=== PATIENT | female | born 1995 | race Caucasian/White ===

== ENCOUNTER 2022-04-18 16:04 | Emergency (ER) | payer OTHER ==
--- OUTSIDE RECORDS SUMMARY | 2022-04-18 16:08 | XMS REPORT | Continuity of Care Document ---
:1995 Author Organization [facility] t Address [address] [place] [address] Care Team Providers Name Role Phone CAMILA BENAVIDES Primary Care Physician Unavailable CAMILA BENAVIDES Attending Clinician Unavailable Camila Benavides MD Attending Clinician Payers Payer Name Policy Type Policy Number Effective Date Expiration Date S sahli [facility] [id number] 2016 00:00:00 Problems Condition Condition Condition Status Onset Resolution Last Treating Co mments Source Name Details Category Date Date Treatment Clinician Date ADHD ADHD Disease Active Univers (attention (attention 4-27 it y of deficit deficit 00:00: [place] hyperactiv hyperactiv 00 Me dical ity ity Branch disorder), disorder), inattentiv inattentiv e type e type Anxiety, Anxiety, Disease Active Unive rs generalize generalize 4-27 it y of d d 00:00: [place] [address] Medical Branch Moderately Moderately Disease Active U nivers severe severe 4-27 ity of depression [place] Primary Primary Disease Active Univers insomnia insomnia 4-27 ity of 00:00: [place] [facility] History of History of Disease Active U nivers abnormal abnormal 2-23 ity of cervical cervical 00:00: [place] Pap smear Pap smear 00 [facility] gina Branch Pain Pain Disease Active Univers pelvic pelvic 2-23 ity of 00:00: [place] [address] Medical Branch Flu Flu Disease Active Univers vaccine vaccine 2-23 ity of need need 00:00: [place] 00 Medical Branch Class 3 Class 3 Disease Active Univers severe severe 2-23 ity of obesity obesity 00:00: [place] due to due to 00 Medical excess excess Branch calories calories with body with body mass index mass index (BMI) of (BMI) of 40.0 to 40.0 to 44.9 in 44.9 in adult, adult, unspecifie unspecifie d whether d whether serious serious comorbidit comorbidit y present y present BMI BMI Disease Active Univers 40.0-44.9, 40.0-44.9, 2-23 it y of adult adult 00:00: [place] 00 Medical Branch Papanicola Papanicola Disease Active 2019-08 Overview : Univers ou smear ou smear 0-12 Formattin ity of of cervix of cervix 00:00: [place] of this [place] with low with low 00 note Medica l grade grade might be Branch squamous squamous different intraepith intraepith from the elial elial original. lesion lesion See (LGSIL) (LGSIL) results, will need repeat pap in 12 months Encounter Encounter Disease Active Uni vers for for 6-08 ity of contracept contracept 00:[place] sid sid 00 Medical management management Br anch , , unspecifie unspecifie d d contracept contracept sid sid encounter encounter type type Encounter Encounter Disease Active Uni vers to to 6-08 ity of establish establish 00:00: Luis Fernando s care with care with 00 [facility] gina new doctor new doctor Br anch Obesity Obesity Disease Active Univers (BMI (BMI 6-08 ity of 30-39.9) 30-39.9) 00:00: [place] 00 Medical Branch Well woman Well woman Disease Active U nivers exam exam 1-29 ity of without without 00:00: [place] gynecologi gynecologi 00 Me dical gina exam gina exam Branch Risky Risky Disease Active Univers sexual sexual 2-15 ity of behavior behavior 00:00: [place] [facility] Allergies, Adverse Reactions, Alerts Allergy Allergy Status Severity Reaction(s) Onset Inactive Treating Comm ents Source Name Type Date Date Clinician LATEX DRUG Active Rash Univers INGREDI 7-30 ity of 00:00: [place] [facility] Latex Propensi Active Rash 2015-0 Univers ty to 7-30 ity of adverse 00:00: [place] reaction 00 Medical s Branch Social History Social Habit Start Date Stop Date Quantity Comments Source Alcohol intake 2021-12-27 2021-12-27 Current drinker Unive rsity of 00:00:00 00:00:00 of alcohol [place] [facility] (finding) Branch Exposure to 2021-12-13 2021-12-[address] [facility]-CoV-2 00:00:00 22:10:00 [place] [facility] (event) Branch Alcohol Comment 2021-10-22 2021-10-22 social Universit y of 00:00:00 00:00:00 [place] [facility] History SDOH 2020-06-03 2020-06-03 2 University o f Alcohol Frequency 00:00:00 00:00:00 [place] M edical Branch History SDDE 2020-06-03 2020-06-03 99 University o f Alcohol Std 00:00:00 00:00:00 [place] [facility] Drinks Branch History SDDE 2020-06-03 2020-06-03 99 University o f Alcohol Binge 00:00:00 00:00:00 [place] [facility] al [facility] Tobacco use and 2013-11-07 2013-11-07 Never used Universit y of exposure 00:00:00 00:00:00 [facility] Sex [birth year] At [birth year] Universit y of 00:00:00 00:00:00 [facility] Smoking Status Start Date Stop Date Source Never smoker [facility] Medications Ordered Filled Start Stop Current Ordering Indication Dosage Frequency Signature Comments Components Source Medication Medication Date Date Medication? Clinician (SIG) Name Name traZODone Yes [id number] 50mg Take 1 Uni vers 50 mg 4-27 tablet by ity of tablet 00:00: mouth at [place] 00 bedtime. Medical Branch buPROPion Yes [id number] 100mg Take 1 Univers SR 100 mg 4-27 tablet by ity o f SR tablet 00:00: mouth 2 00 (two) Medical times Branch daily. clotrimazol Yes [id number] Apply to [facility] [place] [facility] e-betametha 4-04 area(s) 2 ity of sone 00:00: (two) [place] (LOTRISONE) 00 times Medical cream daily. Branch omeprazole Yes [id number] 20mg Take 1 Univers 20 mg - capsule by ity of capsule 00:00: mouth [place] 00 daily. Medical Branch ketoconazol Yes [id number] Apply to Univers e 2 % 12-01 area(s) ity of shampoo 00:00: once [place] 00 as needed Medical for Branch Itching (tinea vesicolor) . Lather shampoo, then rinse after 5 mins for 2 weeks fluconazole 2021- No TAKE 1 Uni vers 150 mg 10-31 TABLET BY ity of tablet 00:00: 00:00 MOUTH 1 [place] 00 :00 TIME NOW Medical FOR 1 DOSE Branch amoxicillin 2021- No [id number] 500mg Take 1 Univers 500 mg 12-17 capsule by ity of capsule 00:00: 00:00 mouth 3 [place] 00 :00 (three) Medical times Branch daily. ibuprofen 2021- No [id number] 800mg Take 1 Univers 800 mg 12-17 tablet by ity of tablet 00:00: 00:00 mouth [place] 00 :00 every 8 Medical (eight) Branch hours. ondansetron 2021- No [id number] 4mg Take 1 Univers 4 mg 12-17 tablet by ity of disintegrat 00:00: 00:00 [place] tablet 00 :00 every 4 Medica l (four) Branch hours as needed for Nausea and Vomiting (N/V). ibuprofen 2021- No [id number] 600mg Take 1 Univers 600 mg 08-30 tablet by ity of tablet 00:00: 00:00 mouth [place] 00 :00 every 6 Medical (six) Branch hours as needed for Pain (scale 4-6). ibuprofen 2019-08- No [id number] 600mg Take 1 Univers 600 mg 09-30 tablet by ity of tablet 00:00: 00:00 mouth [place] 00 :00 every 6 Medical (six) Branch hours as needed for Pain (scale 4-6). traMADoL 50 2019-08- No [id number] 50mg Take 1 Uni vers mg tablet 09-30 tablet by ity of 00:00: 00:00 mouth [place] 00 :00 every 6 Medical (six) Branch hours as needed for Pain (scale 4-6). Indication s: acute pain medroxyPROG 2016-0 Yes [id number] 150mg U ade ESTERone - ity of (DEPO-PROVE 20:15: [place] RA) 00 Medical injection Branch 150 mg Immunizations Ordered Immunization Filled Immunization Date Status Commen ts Source Name Name HPV9 2021-10-22 Completed University of 00:00:00 [facility] Influenza Virus 2021-10-22 Completed Universit y of Vaccine Quad .5 mL IM 00:00:00 [place] [facility] 6+ MO Branch SARS-COV-2 COVID-19 2021-08-09 Completed Unive rsity of PFIZER VACCINE 00:00:00 [place] [facility] gina Branch SARS-COV-2 COVID-19 2021-01-22 Completed Unive rsity of MODERNA VACCINE 00:00:00 [facility] ical Branch SARS-COV-2 COVID-19 2020-12-17 Completed Unive rsity of MODERNA VACCINE 00:00:00 [facility] ical Branch Influenza Virus 2020-06-03 Completed Universit y of Vaccine Quad .5 mL IM 00:00:00 [place] [facility] 6+ MO Branch Meningococcal 2015-03-28 Completed University of Polysaccharide 00:00:00 [facility] gina (groups A, C, Y and Branc h W-135) conjugate vaccine (MCV4P) HPV 2011-03-17 Completed University of 00:00:00 [facility] HPV 2010-12-23 Completed University of 00:00:00 [facility] DTAP 2008-12-06 Completed University of 00:00:00 [facility] Meningococcal Vaccine 2008-12-06 Completed Uni versity of 00:00:00 [facility] Varicella 2008-12-06 Completed University of (varivax)(chicken 00:00:00 [facility] edical pox) Branch HEPATITIS A 2006-03-22 Completed University of 00:00:00 [facility] Hep B, Adol or Pedi 2006-03-22 Completed Unive rsity of Dosage 00:00:00 [facility] DTAP 2006-01-13 Completed University of 00:00:00 [facility] Hep B, Adol or Pedi 2006-01-13 Completed Unive rsity of Dosage 00:00:00 [facility] DTAP 2005-07-13 Completed University of 00:00:00 [facility] HEPATITIS A 2005-07-13 Completed University of 00:00:00 [facility] Hep B, Adol or Pedi 2005-07-13 Completed Unive rsity of Dosage 00:00:00 [facility] DTAP 2001-05-05 Completed University of 00:00:00 [facility] MMR 2001-05-05 Completed University of 00:00:00 [facility] Polio (IPV/OPV) 2001-05-05 Completed Universit y of 00:00:00 [facility] Pneumococcal 7 2000-12-24 Completed University of Conjugate, PCV7 00:00:00 [place] Med ical (Prevnar7) Branch DTAP 1998-08-06 Completed University of 00:00:00 [facility] HIB 4 Dose Schedule 1998-05-02 Completed Unive rsity of 00:00:00 [facility] MMR 1998-05-02 Completed University of 00:00:00 [facility] Polio (IPV/OPV) 1998-05-02 Completed Universit y of 00:00:00 [facility] Varicella 1998-05-02 Completed University of (varivax)(chicken 00:00:00 [facility] edical pox) Branch Vital Signs Vital Name Observation Time Observation Value Comments Source Systolic blood 2021-12-24 20:05:00 115 mm[Hg] Univer sity of pressure [facility] Diastolic blood 2021-12-24 20:05:00 75 mm[Hg] Unive rsity of pressure [facility] Heart rate 2021-12-24 20:05:00 80 /min [facility] Body temperature 2021-12-24 20:05:00 37.22 Ximena [facility] Respiratory rate 2021-12-24 20:05:00 18 /min [facility] Body height 2021-12-24 20:05:00 149.9 cm [facility] Body weight 2021-12-24 20:05:00 93.441 kg [facility] BMI 2021-12-24 20:05:00 41.61 kg/m2 [facility] Oxygen saturation in 2021-12-24 20:05:00 97 /min [facility] Arterial blood by [facility] Pulse oximetry Branch Procedures This patient has no known procedures. Encounters Start End Encounter Admission Attending Care Care Encounter Source Date/Time Date/Time Type Type Clinicians Facility Department ID 2022-04-30 2022-04-30 [facility] [id number] Univers 13:00:00 13:00:00 CAMILA [id number] [facility] 2022-01-07 2022-01-07 [facility] [id number] Univers 08:20:00 08:20:00 CAMILA [facility] 2021-12-24 2021-12-24 [facility] [id number] Univers 14:00:00 15:44:33 Visit Camila HERNANDEZ [id number] i [place] [id number] Luis Fernando KRAUS [id number] Or dical NAL 044 Branch BUILDING Results This patient has no known results.
[2022-04-18 16:34] LABS: Urine Blood Negative (Negative); Urine Glucose Negative (Negative); Urine Protein Negative (Negative); Urine Specific Gravity 1.025 (1.005-1.030)
[2022-04-18 18:06] LABS: Urine Specific Gravity/Preg 1.025 (1.005-1.030)
[2022-04-18 18:21] LABS: Absolute Lymphocytes (CBC) 1.4 K/uL (0.7-4.9); Hematocrit 37.8 % (36.0-45.0); Lymphocytes % 16.4 % (15.3-44.8); MCV 80.3 fL (80-100); MPV 7.9 fL (7.6-11.3)
[2022-04-18] MEDS ORDERED: ONDANSETRON 4 MG/2 ML VIAL ONE (18:32)
[2022-04-18] MEDS ORDERED: DICYCLOMINE HCL 20 MG/2 ML AMP IM ONE (18:32)
[2022-04-18 18:39] LABS: Albumin 3.5 g/dL (3.4-5.0); Bilirubin Total 0.3 mg/dL (0.2-1.0); Protein, Total 7.4 g/dL (6.4-8.2)
[2022-04-18 18:47] LABS: Urine Bacteria 20-50 /HPF (<20); Urine Mucus 1+ /HPF (None Seen); Urine RBC <5 /HPF (None Seen)
--- NOTE | 2022-04-18 19:19 | RAD REPORT ---
EXAM DESCRIPTION: CT - Abdomen Pelvis W Contrast - 04/18/2022 6:55 pm CLINICAL HISTORY: abdominal pain COMPARISON: No comparisons TECHNIQUE: Biphasic, helical CT imaging of the abdomen and pelvis was performed following 100 ml non -ionic IV contrast. No oral contrast administered. All CT scans are performed using dose optimization technique as appropriate and may include automated exposure control or mA/KV adjustment according to patient size. FINDINGS: No suspicious findings in the lung bases. The liver, spleen, and pancreas show no suspicious findings. Gallbladder and biliary tree are also wi thout suspicious finding. Symmetric renal function is seen with no hydronephrosis or suspicious renal mass. No pyelonephritis o r acute parenchymal process. No bladder abnormalities. No adrenal abnormalities. No dilated bowel loops or bowel wall thickening. No appendicitis findings. A few small nonspecific me senteric lymph nodes are present. Uterus and ovaries show no suspicious findings. No free air or pneu matosis. Physiologic quantity of free fluid is present in the cul de sac. No hernia, mass or bulky l ymphadenopathy. No suspicious bony findings. IMPRESSION: Contrast enhanced CT abdomen and pelvis showing no acute or emergent finding.
--- NOTE | 2022-04-18 19:32 | EDPHYS ---
Physician Documentation [facility] Name: Evie Estevez Age: 27 yrs Sex: Female : 1995 Arrival Date: 04/18/2022 Time: 16:07 Bed 10 Private MD: ED Physician Vero Mcelroy HPI: 04/18 17:35 This 27 yrs old Female presents to ER via Ambulatory with complaints of Dizziness, cp Nausea/Vomiting, Abdominal Cramping. 17:35 The patient presents with abdominal pain in the epigastric area, in the lower abdomen. cp Onset: The symptoms/episode began/occurred today. The symptoms radiate to low back. 17:35 Associated signs and symptoms: Pertinent positives: nausea and vomiting, dizziness. cp 17:35 Severity of pain: in the emergency department the pain has improved mildly. cp [employer]: 16:26 LMP 04/17/2022 kb3 Historical: - Allergies: 16:26 Latex, Natural Rubber; kb3 - Home Meds: 16:26 None [Active]; kb3 - PMHx: 16:26 None; kb3 - PSHx: 16:26 None; kb3 - Immunization history:: Adult Immunizations up to date, Client reports receiving the 2nd dose of the Covid vaccine, Last tetanus immunization: up to date. - Social history:: Smoking status: Patient denies any tobacco usage or history of. Patient uses alcohol, only on a social basis. Patient/guardian denies using street drugs. ROS: 17:40 Constitutional: Negative for body aches, chills, fever, poor PO intake. cp 17:40 Cardiovascular: Negative for chest pain, palpitations. cp 17:40 Respiratory: Negative for cough, shortness of breath, wheezing. 17:40 Abdomen/GI: Positive for abdominal pain, nausea and vomiting, abdominal cramps, Negative for diarrhea, constipation. 17:40 Back: Negative for injury or acute deformity, decreased range of motion. 17:40 : Positive for vaginal bleeding. 17:40 Neuro: Positive for dizziness, Negative for altered mental status, numbness, tingling, weakness. 17:40 All other systems are negative. Exam: 17:45 Constitutional: The patient appears in no acute distress, alert, awake, cp non-diaphoretic, non-toxic, well developed, well nourished. 17:45 Head/Face: Normocephalic, atraumatic. cp 17:45 Eyes: Periorbital structures: appear normal, Conjunctiva: normal, no exudate, no injection, Sclera: no appreciated abnormality, Lids and lashes: appear normal, bilaterally. 17:45 ENT: External ear(s): are unremarkable, Nose: is normal, Mouth: Lips: moist, Oral mucosa: pink and intact, moist, Posterior pharynx: Airway: no evidence of obstruction, patent. 17:45 Chest/axilla: Inspection: normal. 17:45 Cardiovascular: Rate: normal, Rhythm: regular. 17:45 Respiratory: the patient does not display signs of respiratory distress, Respirations: normal, no use of accessory muscles, no retractions, labored breathing, is not present, Breath sounds: are clear throughout, no decreased breath sounds, no stridor, no wheezing. 17:45 Abdomen/GI: Inspection: abdomen appears normal, Bowel sounds: active, all quadrants, Palpation: soft, in all quadrants, mild abdominal tenderness, in the epigastric area, right lower quadrant and left lower quadrant, rebound tenderness, is not appreciated, involuntary guarding, is not appreciated. 17:45 Back: CVA tenderness, is absent. 17:45 Skin: cellulitis, is not appreciated, no rash present. cp 17:45 Neuro: Orientation: to person, place \T\ time. Mentation: is normal, Motor: moves all cp fours, strength is normal. Vital Signs: 16:23 BP 119 / 77; Pulse 90; Resp 20; Temp 98.6; Pulse Ox 100% ; Weight 92.99 kg; Height 4 kb3 ft. 11 in. (149.86 cm); Pain 4/10; 19:47 BP 102 / 68; Pulse 77; Resp 20; Pulse Ox 99% ; Pain 2/10; kb3 16:23 Body Mass Index 41.40 (92.99 kg, 149.86 cm) kb3 MDM: 17:34 Patient medically screened. cp 19:30 Data reviewed: vital signs, nurses notes, lab test result(s), radiologic studies, CT cp scan. 19:30 Differential diagnosis: appendicitis, cholecystitis, Cholelithiasis, gastritis, cp non-specific abd pain, Pelvic Inflammatory Disease, Pyelonephritis, Ureterolithiasis, urinary tract infection. Counseling: I had a detailed discussion with the patient and/or guardian regarding: the historical points, exam findings, and any diagnostic results supporting the discharge/admit diagnosis, lab results, radiology results, to return to the emergency department if symptoms worsen or persist or if there are any questions or concerns that arise at home. Response to treatment: the patient's symptoms have mildly improved after treatment, and as a result, I will discharge patient. 04/18 16:35 Order name: Urine Dipstick-Ancillary; Complete Time: 18:44 EDMS 04/18 16:36 Order name: Urine --Ancillary (enter results); Complete Time: 18:44 eb 04/18 17:57 Order name: CBC with Diff; Complete Time: 18:44 cp 04/18 18:44 Interpretation: Normal except: MCH 26.1; RDW 15.3; RADHA% 76.3. cp 04/18 17:57 Order name: CMP; Complete Time: 18:44 cp 04/18 18:45 Interpretation: Normal except: AST 12; GLOB 3.9; A/G 0.9. cp 04/18 17:57 Order name: Lipase; Complete Time: 18:44 cp 04/18 17:57 Order name: Urine Microscopic Only; Complete Time: 19:22 cp 04/18 19:22 Interpretation: Abnormal: UBACT 20-50. cp 04/18 17:57 Order name: CT Abd/Pelvis - IV Contrast Only; Complete Time: 19:22 cp 04/18 19:22 Interpretation: Report reviewed. 04/18 17:57 Order name: IV Saline Lock; Complete Time: 18:14 cp 04/18 17:57 Order name: Labs collected and sent; Complete Time: 18:14 cp 04/18 17:57 Order name: Urine Dipstick-Ancillary (obtain specimen); Complete Time: 18:14 cp 04/18 18:50 Order name: Urine Culture EDKY 04/18 17:57 Order name: Urine Test (obtain specimen); Complete Time: 18:14 cp Administered Medications: 18:46 Drug: Zofran (Ondansetron) 4 mg Route: IVP; Site: left antecubital; iw 20:02 Follow up: Response: No adverse reaction; Nausea is decreased kb3 18:46 Drug: Dicyclomine 20 mg Route: IM; Site: right deltoid; iw 19:48 Follow up: Response: No adverse reaction kb3 19:52 Drug: Rocephin (cefTRIAXone) 1 grams Route: IV; Rate: calculated rate; Site: left kb3 antecubital; 20:02 Follow up: Response: No adverse reaction; IV Status: Completed infusion; IV Intake: [id number] Disposition: 04/19 08:23 STAFF ATTESTATION STATEMENT: I was immediately available onsite in the emergency sd2 department for consultation in the care of this patient. I did not see or examine this patient. Vero Mcelroy MD. Disposition Summary: 04/18/22 19:31 Discharge Ordered Location: Home cp Problem: new cp Symptoms: have improved cp Condition: Stable cp Diagnosis - Abdominal pain, unspecified cp - UTI/ Urinary tract infection, site not specified cp Followup: cp - With: Private Physician - When: 2 - 3 days - Reason: Recheck today's complaints Discharge Instructions: - Discharge Summary Sheet cp - Urinary Tract Infection, Adult cp Forms: - Medication Reconciliation Form cp - Thank You Letter cp - Antibiotic Education cp - Prescription Opioid Use cp Prescriptions: - Zofran 4 mg Oral Tablet - take 1 tablet by ORAL route every 12 hours As needed; 20 tablet; Refills: 0, cp Product Selection Permitted - cefpodoxime 200 mg Oral Tablet - take 1 tablet by ORAL route every 12 hours for 7 days with food; 14 tablet; cp Refills: 0, Product Selection Permitted - dicyclomine 20 mg Oral Tablet - take 1 tablet by ORAL route 4 times per day; 30 tablet; Refills: 0, Product cp Selection Permitted Signatures: Dispatcher [employer] Cammy Love RN RN iw oRdolfo Mendez PA PA cp Vero Mcelroy MD MD sd2 Parisa Vieira, RN RN kb3 Corrections: (The following items were deleted from the chart) 04/18 18:45 18:44 Normal except. cp cp 19:17 17:30 This 27 yrs old Female presents to ER via Ambulatory with complaints of cp Dizziness, Nausea/Vomiting, Abdominal Cramping. cp
--- NOTE | 2022-04-18 19:32 | ER ---
Nurse's Notes [facility] Name: Evie Estevez Age: 27 yrs Sex: Female : 1995 Arrival Date: 04/18/2022 Time: 16:07 Bed 10 Private MD: Diagnosis: Abdominal pain, unspecified;UTI/ Urinary tract infection, site not specified Presentation: 04/18 16:23 Chief complaint: Patient states: Pt reports abdominal cramping with associated N/V that kb3 began around 1300 today. Reports one episode of feeling light-headed at onset of symptoms. Coronavirus screen: Vaccine status: Patient reports receiving the 2nd dose of the covid vaccine. Client denies travel out of the [place] in the last 14 days. Ebola Screen: Patient negative for fever greater than or equal to 101.5 degrees Fahrenheit, and additional compatible Ebola Virus Disease symptoms Patient denies exposure to infectious person. Patient denies travel to an Ebola-affected area in the 21 days before illness onset. No symptoms or risks identified at this time. Initial Sepsis Screen: Does the patient meet any 2 criteria? No. Patient's initial sepsis screen is negative. Does the patient have a suspected source of infection? No. Patient's initial sepsis screen is negative. Risk Assessment: Do you want to hurt yourself or someone else? Patient reports no desire to harm self or others. Onset of symptoms was April 18, 2022 at 13:00. 16:23 Method Of Arrival: Ambulatory kb3 16:23 Acuity: KUNAL 3 kb3 Triage Assessment: 16:26 General: Appears in no apparent distress. comfortable, Behavior is calm, cooperative. kb3 Pain: Complains of pain in right lower quadrant and left lower quadrant Pain radiates to epigastric area Pain currently is 4 out of 10 on a pain scale. Quality of pain is described as crampy, Pain began suddenly. GI: Reports lower abdominal pain, constipation, nausea, vomiting. 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 - Social history:: Smoking status: Patient denies any tobacco usage or history of. Patient uses alcohol, only on a social basis. Patient/guardian denies using street drugs. Screenin:15 Abuse screen: Denies threats or abuse. Denies injuries from another. Nutritional iw screening: No deficits noted. Tuberculosis screening: No symptoms or risk factors identified. Fall Risk IV access (20 points). Assessment: 18:15 General: Appears in no apparent distress. Behavior is calm, cooperative. Pain: iw Complains of pain in left lower quadrant and right lower quadrant. Neuro: Level of Consciousness is awake, alert, obeys commands, Oriented to person, place, time, situation, Moves all extremities. Full function. Cardiovascular: Patient's skin is warm and dry. Respiratory: Respiratory effort is even, unlabored, Respiratory pattern is regular, symmetrical. GI: Abdomen is non-distended, Reports cramping, nausea, vomiting. Derm: Skin is intact, is healthy with good turgor. Musculoskeletal: Range of motion: intact in all extremities. Vital Signs: 16:23 BP 119 / 77; Pulse 90; Resp 20; Temp 98.6; Pulse Ox 100% ; Weight 92.99 kg; Height 4 kb3 ft. 11 in. (149.86 cm); Pain 4/10; 19:47 BP 102 / 68; Pulse 77; Resp 20; Pulse Ox 99% ; Pain 2/10; kb3 16:23 Body Mass Index 41.40 (92.99 kg, 149.86 cm) kb3 ED Course: 16:07 Patient arrived in ED. as 16:08 Rodolfo Mendez PA is PHCP. cp 16:08 Vero Mcelroy MD is Attending Physician. cp 16:26 Triage completed. kb3 16:26 Arm band placed on right wrist. kb3 17:47 Cammy Franco, RN is Primary Nurse. iw 18:14 Initial lab(s) drawn, by me, sent to lab. Inserted saline lock: 20 gauge in left iw antecubital area, using aseptic technique. Blood collected. 18:57 CT Abd/Pelvis - IV Contrast Only In Process Unspecified. EDMS 19:25 Primary Nurse role handed off by Cammy Franco, RN em6 19:47 Patient has correct armband on for positive identification. kb3 19:47 No provider procedures requiring assistance completed. IV discontinued, intact, kb3 bleeding controlled, No redness/swelling at site. 19:48 Parisa Vieira, RN is Primary Nurse. kb3 Administered Medications: 18:46 Drug: Zofran (Ondansetron) 4 mg Route: IVP; Site: left antecubital; iw 20:02 Follow up: Response: No adverse reaction; Nausea is decreased kb3 18:46 Drug: Dicyclomine 20 mg Route: IM; Site: right deltoid; iw 19:48 Follow up: Response: No adverse reaction kb3 19:52 Drug: Rocephin (cefTRIAXone) 1 grams Route: IV; Rate: calculated rate; Site: left kb3 antecubital; 20:02 Follow up: Response: No adverse reaction; IV Status: Completed infusion; IV Intake: [id number] Medication: 19:47 VIS not applicable for this client. kb3 Intake: 20:02 IV: 50ml; Total: 50ml. kb3 Outcome: 19:31 Discharge ordered by . jarocho 20:02 Discharged to home ambulatory. kb3 20:02 Condition: improved 20:02 Discharge instructions given to patient, Instructed on discharge instructions, follow up and referral plans. medication usage, Demonstrated understanding of instructions, follow-up care, medications, Prescriptions given X 3. 20:03 Patient left the ED. kb3 Signatures: Dispatcher [employer] EDMS Shea Workman Irene, RN RN iw Rodolfo Mendez PA PA cp Andria Workman RN RN [facility] Parisa Vieira, RAUL RN kb3 Corrections: (The following items were deleted from the chart) 19:47 19:25 Andria Workman, RAUL is Primary Nurse. [email or web address]
[2022-04-18] MEDS ORDERED: NA CHLORIDE 0.9% 50 ML ONE (19:59)
[2022-04-18] MEDS ORDERED: CEFTRIAXONE 1000 MG/VIAL ONE (19:59)
[2022-04-18 22:58] VITALS: TEMP 98.6
[2022-04-18 23:01] VITALS: BP 102/68; O2SAT 99
== END 2022-04-18 20:03 | disposition home or self-care (01) ==
LOC: ER 16:04
DX: N39.0 Urinary tract infection, site not specified (principal); Z91.040 Latex allergy status; Z91.048 Other nonmedicinal substance allergy status
CPT/HCPCS: 87088; 85025; 87086; 36415; 81025; 83690; 80053; 74177; 96375; 96372; 96374; 99284; Q9967; J0500; J2405; 81003; 81015